=== PATIENT | female | born 1980 | race Caucasian/White ===

== ENCOUNTER 2019-03-16 11:06 | Day surgery (SDC) | payer MEDICAID ==
[~2019-03-16] VITALS: Ht 175.3 cm; Wt 89.3 kg
[~2019-03-16 11:06] MED LIST: BACITRACIN OINT 500U/GM, 15 GM ONE; EPINEPHRINE TOPICAL SOLN 1 MG/ML, 30ML ONE; FLUORESCEIN SODIUM 500 MG/5 ML ONE; LIDOCAINE 1%-EPI 1:100K, 30ML ONE; OXYMETAZOLINE NASAL SPRAY 0.05%, 15ML ONE
[2019-03-16] MEDS ORDERED: LACTATED RINGERS 1,000 ML IV SCH (11:47)
[2019-03-16] MEDS ORDERED: HYDR25TA11 PO (11:51)
[2019-03-16] MEDS ORDERED: IRON1TAB60 PO (11:51)
[2019-03-16 11:54] VITALS: BP 106/73
[2019-03-16 12:17] LABS: BASOPHILS % (AUTO) 1 % (0-1); EOSINOPHILS # (AUTO) 0.14 x10^3/uL (0-0.4); EOSINOPHILS % (AUTO) 2 % (1-7); LYMPHOCYTES # (AUTO) 2.21 x10^3/uL (1-3.4); LYMPHOCYTES % (AUTO) 28 % (22-44); MD NO; MEAN CORPUSCULAR HEMOGLOBIN 32.8 pg (27.0-34.8); MEAN CORPUSCULAR VOLUME 99.6 fL (80-100); MEAN PLATELET VOLUME 9.4 fL (7.4-10.4); MONOCYTES # (AUTO) 0.43 x10^3/uL (0.2-0.8); MONOCYTES % (AUTO) 6 % (2-9); NEUTROPHILS % (AUTO) 64 % (42-75); PLATELET COUNT 256 x10^3/uL (130-400); RED BLOOD COUNT 4.26 x10^6/uL (3.82-5.3); RED CELL DISTRIBUTION WIDTH 14.1 % (9.6-15.2)
[2019-03-16 12:29] LABS: HCG UR SG 1.019 (1.003-1.030)
[2019-03-16] MEDS ORDERED: MIDAZOLAM 1 MG/ML, 2ML ONE (12:56)
[2019-03-16] MEDS ORDERED: FENTANYL PF 250 MCG/5ML ONE (12:56)
[2019-03-16] MEDS ORDERED: EPHEDRINE 50 MG/ML, 1ML ONE (13:41)
[2019-03-16] MEDS ORDERED: PROMETHAZINE 25 MG/ML, 1ML IV PRN (14:00)
[2019-03-16] MEDS ORDERED: LABETALOL 5MG/ML, 20ML IV PRN (14:00)
[2019-03-16] MEDS ORDERED: OXYcodone 5 MG/5 ML ORAL.SOL UDC PO PRN (14:00)
[2019-03-16] MEDS ORDERED: MEPERIDINE/PF 25MG/0.5ML IVPush PRN (14:00)
[2019-03-16] MEDS ORDERED: DIAZEPAM 5 MG/ML, 2ML IVPush PRN (14:00)
[2019-03-16] MEDS ORDERED: HYDROmorphone 2 MG/ML, 1ML IVPush PRN (14:00)
[2019-03-16] MEDS ORDERED: KETOROLAC 30 MG/1 ML IV PRN (14:00)
[2019-03-16] MEDS ORDERED: FENTANYL PF 100 MCG/2ML IV PRN (14:00)
[2019-03-16] MEDS ORDERED: ACETAMINOPHEN 325 MG TABLET PO PRN (14:00)
[2019-03-16] MEDS ORDERED: hydrALAzine 20 MG/ML, 1ML IV PRN (14:00)
[2019-03-16] MEDS ORDERED: ALBUTEROL SULFATE 2.5 MG/3 ML NPPB PRN (14:00)
[2019-03-16] MEDS ORDERED: SUCCINYLCHOLINE 20 MG/ML, 10ML ONE (15:46)
[2019-03-16] MEDS ORDERED: ROCURONIUM 10MG/ML,5ML ONE (15:46)
[2019-03-16] MEDS ORDERED: ONDANSETRON 2MG/ML, 2ML ONE (15:46)
[2019-03-16] MEDS ORDERED: NEOSTIGMINE 1 MG/ML, 10ML ONE (15:46)
[2019-03-16] MEDS ORDERED: CEFAZOLIN 1,000 MG ONE (15:46)
[2019-03-16] MEDS ORDERED: PROPOFOL 10 MG/ML, 20ML ONE (15:46)
[2019-03-16] MEDS ORDERED: GLYCOPYRROLATE 0.2MG/1ML, 5ML ONE (15:46)
[2019-03-16] MEDS ORDERED: DEXAMETHASONE 4 MG/ML, 1ML ONE (15:46)
[2019-03-16] MEDS ORDERED: MEPERIDINE/PF 50 MG/ML ONE (15:47)
== END 2019-03-16 18:45 | disposition home or self-care (01) ==
LOC: OUT 11:06
PROVIDERS: ATTEND Otolaryngology
DX: J32.4 Chronic pansinusitis (principal); J33.8 Other polyp of sinus; F17.210 Nicotine dependence, cigarettes, uncomplicated; Z79.899 Other long term (current) drug therapy; Z88.8 Allergy status to other drugs, medicaments and biological substances; Z98.51 Tubal ligation status; Z98.890 Other specified postprocedural states
CPT/HCPCS: 31240; 31253; 31257; 31267; 36415; 81025; 85025; 87070; 87075; 87205; 88304; 88311; J0330; J0690; J1100; J1885; J2175; J2250; J2405; J2704; J3010; J3490; J7120; J2710